=== PATIENT | female | born 1975 | race Hispanic/Latino ===

== ENCOUNTER → 2023-11-17 | Outpatient (CLI) | payer OTHER | END | disposition home or self-care (01) | LOC: RAH 08:16 | PROVIDERS: ATTEND Family Medicine | DX: Z12.31 Encounter for screening mammogram for malignant neoplasm of breast (principal) | CPT/HCPCS: 77067 ==

== ENCOUNTER 2024-01-02 05:37 | Day surgery (SDC) | payer OTHER ==
[2024-01-02] VITALS (11 sets, daily range): BP systolic 107–129; BP diastolic 72–86; PULSE 61–77; RESP 14–19
[~2024-01-02] VITALS: Ht 154.9 cm; Wt 70.3 kg
[2024-01-02] MEDS: 0.9%NACL 1000ML 1,000 ML IV ONE (06:28)
[2024-01-02] MEDS ORDERED: LIDOCAINE HCL 1% 20 ML VIAL ONE (07:49)
[2024-01-02] MEDS ORDERED: PROPOFOL 10 MG/ML 20ML VIAL IV ONE (07:49)
== END 2024-01-02 09:30 | disposition home or self-care (01) ==
LOC: DAH 05:37 → ENDO 05:37
PROVIDERS: ATTEND Internal Medicine Gastroenterology
DX: Z12.11 Encounter for screening for malignant neoplasm of colon (principal); K57.30 Diverticulosis of large intestine without perforation or abscess without bleeding; K62.89 Other specified diseases of anus and rectum; Z80.0 Family history of malignant neoplasm of digestive organs; Z98.891 History of uterine scar from previous surgery
CPT/HCPCS: 81025; 45380; J7030 ×2; J2704; A4620; A4215 ×2; A4223; A7002; A4222; A4221; A4663; A4606; J3490